=== PATIENT | female | born 1995 | race Hispanic/Latino ===

== ENCOUNTER 2017-05-02 20:31 | Emergency (ER) | payer OTHER ==
[2017-05-02 20:43] VITALS: BP 122/66; PULSE 69; RESP 21; TEMP 98.6; O2SAT 100
[2017-05-02] MEDS ORDERED: Sodium Chloride 0.9% 1,000 ML IV STA (21:04)
[2017-05-02 21:23] LABS: BASO % 0.7 % (0.0-2.0); EOS # 0.1 K/uL (0.0-0.7); EOS % 1.7 % (0.0-4.0); HEMOGLOBIN 12.6 g/dL (12.0-16.0); LYMPH # 2.3 K/uL (1.0-4.3); LYMPH % 32.7 % (20.0-40.0); MEAN CELL VOLUME 99.9 fl (81.0-99.0); MEAN CORPUSCULAR HEMOGLOBIN 34.5 pg (27.0-31.0); MEAN CORPUSCULAR HGB CONC 34.6 g/dL (33.0-37.0); MEAN PLATELET VOLUME 7.4 fl (7.2-11.7); MONO # 0.7 K/uL (0.0-0.8); MONO % 9.5 % (0.0-10.0); NEUT # 3.9 K/uL (1.8-7.0); NEUT % 55.4 % (50.0-75.0); RBC 3.64 Mil/uL (3.80-5.20); RED CELL DISTRIBUTION WIDTH 12.5 % (11.5-14.5)
[2017-05-02 21:34] LABS: ALB/GLOB RATIO 1.7 (1.0-2.1); ALBUMIN 4.6 g/dL (3.5-5.0); ALT/SGPT 34 U/L (9-52); AST/SGOT 32 U/L (14-36); BLOOD UREA NITROGEN 15 mg/dl (7-17); CALCIUM 9.4 mg/dL (8.4-10.2); GFR AFRICAN-AMERICAN > 60; GFR NON-AFRICAN AMERICAN > 60; MAGNESIUM 2.1 MG/DL (1.6-2.3)
--- NOTE | 2017-05-02 22:01 | ED PDOC ---
HPI: Chest Pain History Per: Patient History/Exam Limitations: no limitations Onset/Duration Of Symptoms: Hrs Current Symptoms Are (Timing): Still Present Context: Other (new medication) Severity: Moderate Pain Scale Rating Of: 0 Modifying Factors: None Exacerbating Factors: None Additional History Per: Patient <Renee Arias - Last Filed: 05/02/17 22:55> <Olena Pritchett - Last Filed: 05/04/17 14:49> Time Seen by Provider: 05/02/17 20:50 Chief Complaint (Nursing): Palpitations Additional Complaint(s): 21 y/o female presents recently diagnosed with ADHD and eating disorder started on Vyvanse presents to ED with cc of palpitations. pt reports she woke up out of her sleep short of breath, and since starting the new medication she has been feeling like her heart rate is slowing down especially when she sits down. Reports she started taking Vyvanse on thursday with last dose taken this morning around 10:30am, prior to starting the medication she did have blood work done and everything was normal expect she was told she is anemic. Denies any chest pain, fever, chills, abdominal pain, +dizziness. No other complaints otherwise (Renee Arias) Supervising Attending Note - Supervising Attending Note The Documented history was done by the: Physician Measurement And Sensing Technician The documented physical exam was done by the: Physician Measurement And Sensing Technician - Attestation: I have personally seen and examined this patient.: Yes I have fully participated in the care of the patient.: Yes I have reviewed all pertinent clinical information: Yes <Olena Pritchett - Last Filed: 05/04/17 14:49> Past Medical History - Medical History PMH: No Chronic Diseases - Family History Family History: States: No Known Family Hx <JuanaRenee - Last Filed: 05/02/17 22:55> <Olena Pritchett - Last Filed: 05/04/17 14:49> Vital Signs: Last Vital Signs Temp 98.6 F 05/02/17 20:42 Pulse 69 05/02/17 21:01 Resp 21 05/02/17 20:42 BP 122/66 05/02/17 21:01 Pulse Ox 100 05/02/17 22:55 - Allergies Allergies/Adverse Reactions: Allergies Allergy/AdvReac Type Severity Reaction Status Date / Time No Known Allergies Allergy Verified 05/02/17 20:40 Review of Systems Constitutional: Negative for: Fever Eyes: Negative for: Conjunctivae Inflammation Cardiovascular: Positive for: Palpitations, Light Headedness. Negative for: Chest Pain Respiratory: Positive for: Shortness of Breath. Negative for: Wheezing Gastrointestinal: Negative for: Nausea, Vomiting, Abdominal Pain Genitourinary Female: Negative for: Dysuria, Frequency Musculoskeletal: Negative for: Neck Pain, Shoulder Pain, Hand Pain Skin: Negative for: Rash Neurological: Negative for: Weakness, Numbness, Headache <Renee Arias - Last Filed: 05/02/17 22:55> Physical Exam - Physical Exam Appears: Positive for: Well, No Acute Distress Head Exam: Positive for: NORMAL INSPECTION Skin: Positive for: Normal Color, Warm, Dry Cardiovascular/Chest: Positive for: Regular Rate, Rhythm. Negative for: JVD, Friction Rub, Irregularly Irregular Respiratory: Positive for: Normal Breath Sounds. Negative for: Decreased Breath Sounds, Accessory Muscle Use, Wheezing Pulses-Radial (L): 2+ Pulses-Radial (R): 2+ Gastrointestinal/Abdominal: Positive for: Normal Exam, Bowel Sounds, Soft. Negative for: Tenderness, Organomegaly Extremity: Positive for: Normal ROM. Negative for: Tenderness, Pedal Edema Neurologic/Psych: Positive for: Alert, mds coordinator II-XII, Oriented. Negative for: Motor/Sensory Deficits <Renee Arias - Last Filed: 05/02/17 22:55> - Laboratory Results Result Diagrams: 05/02/17 21:19 05/02/17 21:19 - ECG ECG: Positive for: Interpreted By [place] ECG Rhythm: Positive for: Normal QRS, Normal ST Segment, Sinus Rhythm O2 Sat by Pulse Oximetry: 100 - Progress Re-evaluation Time: 21:45 Condition: Re-examined, Improving,but remains with symptoms <Renee Arias - Last Filed: 05/02/17 22:55> - Laboratory Results Result Diagrams: 05/02/17 21:19 05/02/17 21:19 <Olena Pritchett - Last Filed: 05/04/17 14:49> - Progress ED Course And Treament: cbc, cmp and fluid for hydration EKG x2 (Renee Arias) Disposition - Patient ED Disposition Is Patient to be Admitted: No - Disposition Disposition: Routine/Home Disposition Time: 22:40 <Renee Arias - Last Filed: 05/02/17 22:55> <Olena Pritchett - Last Filed: 05/04/17 14:49> - Clinical Impression Clinical Impression: Medication side effect - Disposition Condition: STABLE Additional Instructions: REST AND DRINK PLENTY OF HYDRATING FLUIDS FOLLOW UP WITH YOUR DOCTOR NEXT WEEK Instructions: Amphetamine (By mouth), Palpitations (ED) Print Language: GUINEAN
--- NOTE | 2017-05-03 10:53 | CARD ---
APPROVED REPORT EKG Measurement Heart [id number] <Conclusion> Sinus bradycardia Otherwise normal ECG
--- NOTE | 2017-05-03 10:53 | CARD ---
APPROVED REPORT EKG Measurement Heart [id number] <Conclusion> Normal sinus rhythm with sinus arrhythmia Normal ECG
== END 2017-05-02 22:58 | disposition home or self-care (01) ==
LOC: H.ER 20:31
DX: R00.2 Palpitations (principal); F90.9 Attention-deficit hyperactivity disorder, unspecified type; D64.9 Anemia, unspecified